=== PATIENT | male | born 1990 | race Caucasian/White ===

== ENCOUNTER 2017-07-10 09:03 | Emergency (ER) | payer BC, OTHER ==
[~2017-07-10] VITALS: Ht 177.8 cm; Wt 86.0 kg
[2017-07-10 09:04] VITALS: Ht 177.8 cm; Wt 86.0 kg
[2017-07-10] MEDS ORDERED: NAPR-260 PO (09:32)
[2017-07-10] MEDS ORDERED: CEPH-443 PO (09:32)
--- NOTE | 2017-07-10 10:44 | ERD ---
ER Documentation Chief Complaint Date/Time DATE: 07/10/17 TIME: 10:41 Chief Complaint pt c/o "bump on back of neck with pain since last " HPI 26-year-old male coming in complaining of "bump on back of neck". Patient states it has been there for the last 5 days. He states it appears to be getting larger. Is mildly tender to palpation. He has not had any blood or drainage from the site. Received tetanus shot 2-3 years ago. Denies any fevers. Has no pain with neck movement. Denies headache. Has never had this before. ROS All systems reviewed and are negative except as per history of present illness. Medications Home Meds Active Scripts Naproxen* (Naprosyn*) 500 Mg Tablet, 500 MG PO BID Y for PAIN AND/OR INFLAMMATION, #30 TAB Prov:LUCIEN JIMENEZ PA-C 07/10/17 Cephalexin* (Keflex*) 500 Mg Capsule, 500 MG PO QID for 7 Days, CAP Prov:LUCIEN JIMENEZ PA-C 07/10/17 Allergies Allergies: Coded Allergies: No Known Allergy (Unverified , 12/20/14) PMhx/Soc Medical and Surgical Hx: pt denies Medical Hx, pt denies Surgical Hx Hx Alcohol Use: No Hx Substance Use: No Hx Tobacco Use: No Smoking Status: Never smoker Physical Exam Vitals Vital Signs Date Time Temp Pulse Resp B/P Pulse Ox O2 Delivery O2 Flow Rate FiO2 07/10/17 09:04 97.1 55 16 118/58 100 Physical Exam GENERAL: The patient is well-appearing, well-nourished, in no acute distress HEENT: Atraumatic. Conjunctivae are pink. Pupils equal, round, and reactive to light. There is no scleral icterus. Tympanic membranes clear bilaterally. Oropharynx clear. No nystagmus or photophobia. NECK: C-spine is soft and supple. There is no meningismus. There is no cervical lymphadenopathy. No JVD. No bruits. No goiter. CHEST: Clear to auscultation bilaterally. There are no rales, wheezes or rhonchi. HEART: Regular rate and rhythm. No murmurs, clicks, rubs or gallops. No S3 or S4. SKIN: 2 cm nonfluctuant mass to the posterior neck. No surrounding erythema. No streaking. No scab or opening to mass. Well-circumscribed. Nonmovable. Procedures/MDM MDM: I have low suspicion for infected abscess. I have low suspicion for retained foreign body. Patient likely has epidermal inclusion cyst which is slightly enlarged. There is no indication for I&D at this time. Patient will be given antibiotics and recommended to use warm compresses on site. Patient is told to return if area enlarges or becomes fluctuant in nature. I discussed this at length the patient. Patient will return for close follow-up with primary doctor within 1-2 days for reevaluation. All questions answered time of discharge. Patient will be discharged with Keflex. Departure Diagnosis: Primary Impression: Pustule Condition: Stable Patient Instructions: Sebaceous Cyst Referrals: [facility] YOU HAVE RECEIVED A MEDICAL SCREENING EXAM AND THE RESULTS INDICATE THAT YOU DO NOT HAVE A CONDITION THAT REQUIRES URGENT TREATMENT IN THE EMERGENCY DEPARTMENT. FURTHER EVALUATION AND TREATMENT OF YOUR CONDITION CAN WAIT UNTIL YOU ARE SEEN IN YOUR DOCTORS OFFICE WITHIN THE NEXT 1-2 DAYS. IT IS YOUR RESPONSIBILITY TO MAKE AN APPOINTMENT FOR [facility]. IF YOU HAVE A PRIMARY DOCTOR --you should call your primary doctor and schedule an appointment IF YOU DO NOT HAVE A PRIMARY DOCTOR YOU CAN CALL OUR PHYSICIAN REFERRAL HOTLINE AT IF YOU CAN NOT AFFORD TO SEE A PHYSICIAN YOU CAN CHOSE FROM THE FOLLOWING [facility] [address] [facility]. [facility] [address] [facility]. [facility] [address] [facility] [address] [facility] [facility]. [facility] [address] [facility] [facility] [address] Additional Instructions: FOLLOW UP WITH YOUR PRIMARY CARE PHYSICIAN TOMORROW.Return to this facility if you are not improving as expected. LUCIEN JIMENEZ PA-C Jul 10, 2017 10:44
== END 2017-07-10 09:43 | disposition home or self-care (01) ==
LOC: FTE 09:03
DX: L08.9 Local infection of the skin and subcutaneous tissue, unspecified (principal)
CPT/HCPCS: 99283